=== PATIENT | female | born 1970 | race African-American/Black ===

== ENCOUNTER 2019-05-14 13:41 | Inpatient (IN) ==
[2019-05-14] MEDS ORDERED: MORPHINE 4 MG/1 ML VIAL IV PRN (14:22)
[2019-05-14] MEDS ORDERED: hydrALAZINE 20 MG/1 ML VIAL IV PRN (14:22)
[2019-05-14] MEDS ORDERED: DEXTROSE 10% 250 ML BAG IV PRN (14:24)
[2019-05-14] MEDS ORDERED: GLUCAGON 1 MG VIAL IM PRN (14:24)
[2019-05-14] MEDS ORDERED: NITROGLYCERIN SL 0.4 MG TABLET SL PRN (14:24)
[2019-05-14] MEDS: INSULIN LISPRO 100 UNIT/ML SUBCUT SCH ×2 (18:09→21:00)
[2019-05-14] MEDS: SODIUM CHLORIDE 0.9% 1,000 ML IV SCH (18:10)
[2019-05-15 03:43] LABS: ABG Base Excess 1.4 MMOL/L (-2.5-2.5); ABG HCO3 25.6 MMOL/L (20-26); ABG Oxygen Saturation 95.5 % (95-100); ABG PCO2 40.7 MM HG (35-48); ABG PH 7.414 (7.35-7.45); Allen Test Positive; Pt O2 Delivery Device Room Air
[2019-05-15 04:55] LABS: Basophils # 0.1 10*3/uL (0.0-0.2); Basophils % 0.7 % (0.0-0.8); Eosinophils # 0.1 10*3/uL (0.0-0.87); Eosinophils % 1.5 % (0.00-10.9); Hematocrit 39.1 VOL% (35.7-47.0); Hemoglobin 12.4 GM/DL (12.0-16.0); Immature Granulocytes % 0.2 %; Immature Granulocytes Absolute 0.02 #; Lymphocytes # 2.8 10*3/uL (1.4-4.0); Lymphocytes % 34.2 % (21.3-54.2); Mean Corpuscular HGB Conc 31.7 GM/DL (32-36); Mean Corpuscular Volume 79.5 FL (87-102); Mean Platelet Volume 11.1 FL (9.6-12.0); Monocytes % 6.7 % (1.7-12.7); Neutrophils % 56.7 % (38.7-73.9); Platelet Count 288 T/CUMM (130-400); Red Blood Count 4.92 MC/CUMM (3.8-5.5); Red Cell Distribution Width 15.2 % (9.3-17.3); White Blood Count 8.2 T/CUMM (4-12)
[2019-05-15 05:25] LABS: Albumin 2.9 G/DL (3.4-5.0); Bilirubin,Total 0.9 MG/DL (0.2-1.0); Calcium 8.8 MG/DL (8.5-10.1); Osmolality,Calculated 283.4 MOS/KG (273-304); Total Protein 6.8 G/DL (6.4-8.3)
[2019-05-15] MEDS ORDERED: GLUCAGON 1 MG VIAL IM PRN (07:49)
[2019-05-15] MEDS ORDERED: DEXTROSE 10% 250 ML BAG IV PRN (07:49)
[2019-05-15] MEDS ORDERED: CEFUROXIME INJ 1,500 MG in SYRINGE 1 EACH IV ONE (07:49)
[2019-05-15] MEDS ORDERED: CHLORHEXIDINE 4% SOLN 118 ML BOTTLE TOP SCH (09:00)
[2019-05-15] MEDS: FUROSEMIDE 80 MG TABLET PO SCH (09:18)
[2019-05-15] MEDS: carvediloL 25 MG TABLET PO SCH ×2 (09:18→20:49)
[2019-05-15] MEDS: INSULIN LISPRO 100 UNIT/ML SUBCUT SCH ×4 (09:18→20:47)
[2019-05-15] MEDS: CHLORHEXIDINE 0.12% ORAL RINSE 60 ML BOTTLE SWISH/SPIT SCH ×2 (09:24→20:51)
[2019-05-15] MEDS ORDERED: CLORAZEPATE 3.75 MG TABLET PO PRN (13:51)
[2019-05-15] MEDS: SODIUM CHLORIDE 0.9% 1,000 ML IV SCH (15:49)
[2019-05-15] MEDS: CHLORHEXIDINE 4% SOLN 118 ML BOTTLE TOP SCH ×2 (15:50→20:51)
[2019-05-15] MEDS ORDERED: SIMVASTATIN 40 MG TABLET PO SCH (21:00)
[2019-05-15] MEDS ORDERED: ISOSORBIDE MONONITRATE 30 MG TABLET PO SCH (21:00)
[2019-05-16] MEDS ORDERED: VANCOMYCIN 500 MG VIAL ONE (04:23)
[2019-05-16] MEDS ORDERED: VANCOMYCIN 1,000 MG VIAL ONE (04:23)
[2019-05-16] MEDS ORDERED: PAPAVERINE 60 MG/2 ML VIAL ONE (04:23)
[2019-05-16] MEDS ORDERED: SUFentanil 250 MCG/5 ML AMP ONE (05:59)
[2019-05-16] MEDS ORDERED: MIDAZOLAM 10 MG/2 ML VIAL ONE ×2 (05:59→06:00)
[2019-05-16] MEDS ORDERED: AMINOCAPROIC ACID 5,000 MG/20 ML VIAL ONE (06:00)
[2019-05-16] MEDS ORDERED: DIAZEPAM 5 MG TABLET PO ONE (06:00)
[2019-05-16] MEDS ORDERED: FAMOTIDINE 20 MG TABLET PO ONE (06:00)
[2019-05-16] MEDS ORDERED: CEFUROXIME INJ 1,500 MG in SYRINGE 1 EACH IV ONE (06:00)
[2019-05-16] MEDS ORDERED: VECURONIUM 10 MG VIAL IV ONE (06:00)
[2019-05-16] MEDS: INSULIN LISPRO 100 UNIT/ML SUBCUT SCH ×2 (06:00→12:54)
[2019-05-16] MEDS ORDERED: MINERAL OIL/PETROLATUM OPH OINT 3.5 GM TUBE ONE (06:00)
[2019-05-16] MEDS: carvediloL 25 MG TABLET PO SCH ×2 (06:04→12:54)
[2019-05-16] MEDS: CHLORHEXIDINE 4% SOLN 118 ML BOTTLE TOP SCH ×2 (06:10→11:36)
[2019-05-16 07:50] LABS: ABG Base Excess -1.4 MMOL/L (-2.5-2.5); ABG HCO3 23.3 MMOL/L (20-26); ABG Oxygen Saturation 99.4 % (95-100); ABG PCO2 39.8 MM HG (35-48); ABG TCO2 21.2 MMOL/L (23-27); Glucose Heart Surgery 295 MG/DL (74-106); Hematocrit Heart Surgery 33.7 PERCENT (37-47); Hemoglobin Heart Surgery 10.9 G/DL (12.0-16.0); Ionized Calcium Arterial 1.15 MMOL/L (1.21-1.46); PCO2 Patient Temp Arterial 39.8 MMHG; Patient Temperature 37 CELCIUS; Potassium Heart/CVR 3.7 MMOL/L (3.5-5.1); Sodium Heart/CVR 139 MMOL/L (135-145)
[2019-05-16] MEDS ORDERED: ALBUMIN 5% 12.5 GM/250 ML VIAL IV ONE (08:51)
[2019-05-16 08:52] LABS: Apearance,Urine CLOUDY (Clear); Bacteria,Urine Occasional /HPF (Few); Bilirubin,Urine Negative (Negative); Blood, Urine Negative (Negative); Glucose,Urine (UA) >=500 mg/dL (Negative); Ketones,Urine Negative (Negative); Mucus,Urine Few /LPF (Occasional); Nitrite,Urine Negative (Negative); Protein,Urine 30 MG/DL; RBC,Urine 2 /HPF (0-4); Squamous Epithelial Cell,Urine Few /HPF (0-10); Urine Color Amber (Yellow); Urine Specific Gravity 1.025 (1.001-1.035); Urine Urobilinogen < 2.0 EU/DL (0.2-1.0); WBC,Urine <1 /HPF (0-6)
[2019-05-16] MEDS ORDERED: NITROPRUSSIDE 50 MG/2 ML VIAL ONE ×2 (08:52)
[2019-05-16] MEDS ORDERED: PHENYLEPHRINE DRIP 40 MG/250 ML PREMIX IV ONE (08:52)
[2019-05-16] MEDS ORDERED: CALCIUM CHLORIDE 1,000 MG/10 ML SYRINGE IV ONE (08:53)
[2019-05-16 09:24] LABS: Hematocrit Heart Surgery 21.9 PERCENT (37-47); PCO2 Patient Temp Venous 38.6 MM HG; PH Patient Temp Venous 7.404; PO2 Patient Temp Venous 41.3 MM HG; Potassium Heart/CVR 4.5 MMOL/L (3.5-5.1); VBG Base Excess -0.3 MEQ/L (0-4); VBG Oxygen Saturation 82.4 %; VBG PCO2 42.5 MMHG (41-51); VBG PH 7.376; VBG PO2 47.3 MMHG (17-40)
[2019-05-16 09:56] LABS: Hematocrit Heart Surgery 26.2 PERCENT (37-47); Hemoglobin Heart Surgery 8.4 G/DL (12.0-16.0); PCO2 Patient Temp Venous 36.8 MM HG; PH Patient Temp Venous 7.396; PO2 Patient Temp Venous 41.3 MM HG; Potassium Heart/CVR 5.4 MMOL/L (3.5-5.1); VBG Base Excess -1.9 MEQ/L (0-4); VBG HCO3 22.5 MEQ/L (24-28); VBG Oxygen Saturation 77.1 %; VBG PCO2 36.8 MMHG (41-51); VBG PH 7.396; VBG PO2 41.3 MMHG (17-40)
[2019-05-16] MEDS ORDERED: PROTAMINE SULFATE 250 MG/25 ML VIAL IV ONE (10:26)
[2019-05-16] MEDS ORDERED: MANNITOL 100 GM/500 ML BAG IV ONE (10:26)
[2019-05-16] MEDS ORDERED: methylPREDNISolone SOD SUC 1,000 MG/8 ML VIAL ONE (10:26)
[2019-05-16] MEDS ORDERED: ALBUMIN 25% 25 GM/100 ML VIAL IV ONE ×2 (10:26→10:34)
[2019-05-16] MEDS ORDERED: LIDOCAINE 2% 5 ML VIAL ONE (10:26)
[2019-05-16] MEDS ORDERED: MAGNESIUM SULFATE 5 GM/10 ML VIAL IV ONE (10:26)
[2019-05-16] MEDS ORDERED: DEXTROSE 5% KCL 20 MEQ 20 MEQ/1,000 ML BAG IV ONE (10:26)
[2019-05-16] MEDS ORDERED: HEPARIN 10,000 UNIT/10 ML VIAL ONE (10:26)
[2019-05-16] MEDS ORDERED: SODIUM BICARBONATE 50 MEQ/50 ML VIAL IV ONE (10:26)
[2019-05-16] MEDS ORDERED: FUROSEMIDE 20 MG/2 ML VIAL ONE (10:27)
[2019-05-16] MEDS ORDERED: PROTAMINE SULFATE 50 MG/5 ML VIAL IV ONE ×3 (10:27→11:24)
[2019-05-16 10:33] LABS: ABG Base Excess -4.9 MMOL/L (-2.5-2.5); ABG HCO3 19.8 MMOL/L (20-26); ABG Oxygen Saturation 98.7 % (95-100); ABG PCO2 34.8 MM HG (35-48); ABG PH 7.372 (7.35-7.45); ABG PO2 259.3 MM HG (80-95); ABG TCO2 20.8 MMOL/L (23-27); Glucose Heart Surgery 313 MG/DL (74-106); Hemoglobin Heart Surgery 8.7 G/DL (12.0-16.0); Ionized Calcium Arterial 1.36 MMOL/L (1.21-1.46); PCO2 Patient Temp Arterial 34.8 MMHG; PH Patient Temp Arterial 7.372; PO2 Patient Temp Arterial 259.3 MM HG; Patient Temperature 37 CELCIUS; Potassium Heart/CVR 3.8 MMOL/L (3.5-5.1); Sodium Heart/CVR 132 MMOL/L (135-145)
[2019-05-16] MEDS ORDERED: ONDANSETRON 4 MG/2 ML VIAL IV PRN (11:23)
[2019-05-16] MEDS ORDERED: LACTATED RINGERS 250 ML IV PRN (11:23)
[2019-05-16] MEDS ORDERED: INSULIN REGULAR 100 UNIT/ML IV PRN (11:23)
[2019-05-16] MEDS ORDERED: MORPHINE 10 MG/1 ML VIAL IV PRN (11:23)
[2019-05-16] MEDS ORDERED: ALBUMIN 5% 12.5 GM in PREMIX 1 EACH IV PRN (11:23)
[2019-05-16] MEDS ORDERED: VECURONIUM 10 MG VIAL IV PRN ×2 (11:23)
[2019-05-16] MEDS ORDERED: MAGNESIUM SULF RIDER 4 GM in PREMIX 1 EACH IV PRN (11:23)
[2019-05-16] MEDS ORDERED: CHLORHEXIDINE 4% SOLN 118 ML BOTTLE TOP PRN (11:23)
[2019-05-16] MEDS ORDERED: INSULIN REGULAR 100 UNIT/ML IV ONE (11:23)
[2019-05-16] MEDS ORDERED: MAGNESIUM SULF RIDER 2 GM in PREMIX 1 EACH IV PRN (11:23)
[2019-05-16] MEDS ORDERED: CALCIUM CHLORIDE 1,000 MG/10 ML SYRINGE IV PRN (11:23)
[2019-05-16] MEDS ORDERED: PHENYLEPHRINE DRIP 40 MG/250 ML PREMIX IV PRN (11:23)
[2019-05-16] MEDS ORDERED: ACETAMINOPHEN 650 MG SUPP RECTAL PRN (11:23)
[2019-05-16] MEDS ORDERED: MORPHINE 4 MG/1 ML VIAL IV PRN (11:23)
[2019-05-16] MEDS ORDERED: MIDAZOLAM 2 MG/2 ML VIAL IV PRN (11:23)
[2019-05-16] MEDS ORDERED: POTASSIUM CHLORIDE RIDER 10 MEQ in PREMIX 1 EACH IV PRN (11:23)
[2019-05-16] MEDS ORDERED: MIDAZOLAM 10 MG/2 ML VIAL IV PRN (11:23)
[2019-05-16] MEDS ORDERED: DEXTROSE 10% 250 ML BAG IV PRN ×2 (11:23)
[2019-05-16 11:27] LABS: ABG HCO3 21.1 MMOL/L (20-26); ABG Oxygen Saturation 98.7 % (95-100); ABG PCO2 38.2 MM HG (35-48); ABG PO2 234.6 MM HG (80-95); ABG TCO2 22.3 MMOL/L (23-27); Glucose Heart Surgery 262 MG/DL (74-106); Hemoglobin Heart Surgery 9.4 G/DL (12.0-16.0); Potassium Heart/CVR 4.2 MMOL/L (3.5-5.1)
[2019-05-16 11:28] LABS: Basophils # 0.1 10*3/uL (0.0-0.2); Basophils % 0.4 % (0.0-0.8); Eosinophils # 0.1 10*3/uL (0.0-0.87); Eosinophils % 0.6 % (0.00-10.9); Hematocrit 29.7 VOL% (35.7-47.0); Immature Granulocytes % 0.7 %; Lymphocytes # 2.3 10*3/uL (1.4-4.0); Lymphocytes % 16.5 % (21.3-54.2); Mean Corpuscular HGB Conc 30.3 GM/DL (32-36); Mean Corpuscular Volume 81.4 FL (87-102); Mean Platelet Volume 11.3 FL (9.6-12.0); Monocytes % 5.4 % (1.7-12.7); Neutrophils % 76.4 % (38.7-73.9); Platelet Count 248 T/CUMM (130-400)
[2019-05-16] MEDS ORDERED: SODIUM CHLORIDE 0.45% 1,000 ML IV SCH ×2 (11:30)
[2019-05-16 11:31] LABS: Red Blood Count 3.65 MC/CUMM (3.8-5.5); White Blood Count 13.7 T/CUMM (4-12)
[2019-05-16 11:37] LABS: INR 1.2; PT Patient Result 12.8 SECS (9.6-12.2); Partial Thromboplastin Time 25.5 SECS (20.8-36.0)
[2019-05-16] MEDS ORDERED: LACTATED RINGERS 1,000 ML IV PRN (11:48)
[2019-05-16 11:58] LABS: CKMB % 4.5 %
[2019-05-16 12:01] LABS: Troponin I 1.74 NG/ML (0.00-0.045)
[2019-05-16 12:18] LABS: Albumin 3.4 G/DL (3.4-5.0); Bilirubin,Total 1.2 MG/DL (0.2-1.0); Calcium 9.6 MG/DL (8.5-10.1); Osmolality,Calculated 279.1 MOS/KG (273-304); Total Protein 5.9 G/DL (6.4-8.3)
[2019-05-16 12:28] LABS: ABG Base Excess -3.2 MMOL/L (-2.5-2.5); ABG HCO3 21.8 MMOL/L (20-26); ABG Oxygen Saturation 98.2 % (95-100); ABG PCO2 40.9 MM HG (35-48); ABG PH 7.345 (7.35-7.45); ABG TCO2 20.4 MMOL/L (23-27); Glucose Heart Surgery 280 MG/DL (74-106); Hematocrit Heart Surgery 31.1 PERCENT (37-47)
[2019-05-16] MEDS: CHLORHEXIDINE 0.12% ORAL RINSE 60 ML BOTTLE SWISH/SPIT SCH ×2 (12:53→20:34)
[2019-05-16] MEDS: FUROSEMIDE 80 MG TABLET PO SCH (12:54)
[2019-05-16] MEDS ORDERED: SODIUM CHLORIDE 0.9% 100 ML IV ONE (12:56)
[2019-05-16] MEDS ORDERED: SEVOFLURANE 1 UNIT/15 MINUTE INH ONE (12:56)
[2019-05-16] MEDS ORDERED: PHENYLEPHRINE DRIP 20 MG/250 ML PREMIX IV ONE (12:56)
[2019-05-16] MEDS ORDERED: SODIUM CHLORIDE 0.9% 250 ML IV ONE (12:56)
[2019-05-16] MEDS ORDERED: CALCIUM CHLORIDE 1,000 MG/10 ML VIAL IV ONE (12:56)
[2019-05-16] MEDS ORDERED: LACTATED RINGERS 1,000 ML IV ONE (12:56)
[2019-05-16] MEDS ORDERED: SODIUM CHLORIDE 0.9% 1,000 ML IV ONE (12:56)
[2019-05-16] MEDS ORDERED: HEPARIN/NACL 0.9% 2 UNITS/ML 500 ML IV ONE (12:56)
[2019-05-16 13:19] LABS: ABG Base Excess -3.4 MMOL/L (-2.5-2.5); ABG HCO3 21.6 MMOL/L (20-26); ABG Oxygen Saturation 97.4 % (95-100); ABG PCO2 39.6 MM HG (35-48); ABG PH 7.351 (7.35-7.45); ABG PO2 99.2 MM HG (80-95); ABG TCO2 19.7 MMOL/L (23-27); Glucose Heart Surgery 310 MG/DL (74-106); Hematocrit Heart Surgery 34.1 PERCENT (37-47); Hemoglobin Heart Surgery 11.1 G/DL (12.0-16.0); Potassium Heart/CVR 4.3 MMOL/L (3.5-5.1)
[2019-05-16] MEDS: INSULIN REGULAR DRIP 100 ML IV SCH ×2 (13:26→22:28)
[2019-05-16] MEDS: NITROPRUSSIDE 100 MG in DEXTROSE 5% 250 ML IV PRN (13:56)
[2019-05-16 14:11] LABS: ABG Base Excess -4.5 MMOL/L (-2.5-2.5); ABG HCO3 20.9 MMOL/L (20-26); ABG Oxygen Saturation 94.1 % (95-100); ABG PCO2 39.6 MM HG (35-48); ABG PO2 77.3 MM HG (80-95); ABG TCO2 22.1 MMOL/L (23-27); Glucose Heart Surgery 286 MG/DL (74-106); Hemoglobin Heart Surgery 11.5 G/DL (12.0-16.0); Potassium Heart/CVR 3.9 MMOL/L (3.5-5.1)
[2019-05-16 15:46] LABS: ABG Base Excess -3.3 MMOL/L (-2.5-2.5); ABG HCO3 21.7 MMOL/L (20-26); ABG Oxygen Saturation 95.6 % (95-100); ABG PCO2 43.5 MM HG (35-48); ABG PH 7.327 (7.35-7.45); ABG TCO2 20.4 MMOL/L (23-27); Glucose Heart Surgery 273 MG/DL (74-106); Hemoglobin Heart Surgery 11.7 G/DL (12.0-16.0); Potassium Heart/CVR 3.9 MMOL/L (3.5-5.1)
[2019-05-16 17:21] LABS: ABG Base Excess -2.9 MMOL/L (-2.5-2.5); ABG HCO3 21.9 MMOL/L (20-26); ABG Oxygen Saturation 94.5 % (95-100); ABG PCO2 43.1 MM HG (35-48); ABG PH 7.335 (7.35-7.45); ABG PO2 77.3 MM HG (80-95); ABG TCO2 20.6 MMOL/L (23-27); Glucose Heart Surgery 260 MG/DL (74-106); Hematocrit Heart Surgery 35.8 PERCENT (37-47); Hemoglobin Heart Surgery 11.6 G/DL (12.0-16.0); Potassium Heart/CVR 4.1 MMOL/L (3.5-5.1)
[2019-05-16] MEDS: CEFUROXIME INJ 1,500 MG in SYRINGE 1 EACH IV SCH (18:20)
[2019-05-16 19:26] LABS: ABG Base Excess -2.3 MMOL/L (-2.5-2.5); ABG HCO3 22.4 MMOL/L (20-26); ABG Oxygen Saturation 93.3 % (95-100); ABG PCO2 41.7 MM HG (35-48); ABG PH 7.353 (7.35-7.45); ABG PO2 70.3 MM HG (80-95); ABG TCO2 20.8 MMOL/L (23-27); Glucose Heart Surgery 256 MG/DL (74-106); Hematocrit Heart Surgery 35.9 PERCENT (37-47); Hemoglobin Heart Surgery 11.6 G/DL (12.0-16.0); Potassium Heart/CVR 4.1 MMOL/L (3.5-5.1)
[2019-05-16 20:40] LABS: CKMB % 3.4 %
[2019-05-16 20:44] LABS: Troponin I 3.89 NG/ML (0.00-0.045)
[2019-05-16 21:17] LABS: ABG Base Excess -2.2 MMOL/L (-2.5-2.5); ABG HCO3 22.5 MMOL/L (20-26); ABG Oxygen Saturation 93.1 % (95-100); ABG PCO2 38.6 MM HG (35-48); ABG PH 7.376 (7.35-7.45); ABG PO2 68.6 MM HG (80-95); ABG TCO2 20.3 MMOL/L (23-27); Glucose Heart Surgery 232 MG/DL (74-106); Hematocrit Heart Surgery 35.1 PERCENT (37-47); Hemoglobin Heart Surgery 11.4 G/DL (12.0-16.0); Potassium Heart/CVR 3.7 MMOL/L (3.5-5.1)
[2019-05-16] MEDS ORDERED: FUROSEMIDE 40 MG/4 ML VIAL IV ONE (21:27)
[2019-05-16] MEDS ORDERED: NITROGLYCERIN DRIP 50 MG/250 ML BOTTLE IV PRN (21:27)
[2019-05-16] MEDS: KETOROLAC 30 MG/1 ML VIAL IV SCH (21:41)
[2019-05-16] MEDS: POTASSIUM CHLORIDE RIDER 20 MEQ in PREMIX 1 EACH IV PRN (21:48)
[2019-05-16] MEDS: ALBUTEROL/IPRATROPIUM 3 ML NEB RESP TX SCH (23:58)
[2019-05-17 00:45] LABS: ABG Base Excess -0.5 MMOL/L (-2.5-2.5); ABG HCO3 23.9 MMOL/L (20-26); ABG Oxygen Saturation 94.3 % (95-100); ABG PCO2 39.4 MM HG (35-48); ABG PH 7.397 (7.35-7.45); ABG PO2 71.6 MM HG (80-95); ABG TCO2 21.6 MMOL/L (23-27); Glucose Heart Surgery 166 MG/DL (74-106); Hematocrit Heart Surgery 35.6 PERCENT (37-47); Hemoglobin Heart Surgery 11.6 G/DL (12.0-16.0); Potassium Heart/CVR 3.8 MMOL/L (3.5-5.1)
[2019-05-17 01:45] LABS: ABG Base Excess -0.5 MMOL/L (-2.5-2.5); ABG HCO3 23.9 MMOL/L (20-26); ABG PCO2 38.4 MM HG (35-48); ABG PH 7.404 (7.35-7.45); ABG PO2 69.2 MM HG (80-95); ABG TCO2 21.4 MMOL/L (23-27); Glucose Heart Surgery 146 MG/DL (74-106); Hematocrit Heart Surgery 35.1 PERCENT (37-47); Hemoglobin Heart Surgery 11.4 G/DL (12.0-16.0); Potassium Heart/CVR 3.7 MMOL/L (3.5-5.1)
[2019-05-17] MEDS: POTASSIUM CHLORIDE RIDER 20 MEQ in PREMIX 1 EACH IV PRN (01:49)
[2019-05-17] MEDS: NITROPRUSSIDE 100 MG in DEXTROSE 5% 250 ML IV PRN (02:34)
[2019-05-17 03:31] LABS: Basophils % 0.1 % (0.0-0.8); Hematocrit 36.1 VOL% (35.7-47.0); Hemoglobin 11.2 GM/DL (12.0-16.0); Immature Granulocytes % 0.7 %; Immature Granulocytes Absolute 0.15 #; Lymphocytes # 1.7 10*3/uL (1.4-4.0); Mean Corpuscular Volume 80.6 FL (87-102); Mean Platelet Volume 11.3 FL (9.6-12.0); Monocytes % 5.6 % (1.7-12.7); Neutrophils % 85.6 % (38.7-73.9); Platelet Count 297 T/CUMM (130-400); Red Blood Count 4.48 MC/CUMM (3.8-5.5); Red Cell Distribution Width 15.5 % (9.3-17.3); White Blood Count 21.5 T/CUMM (4-12)
[2019-05-17 03:35] LABS: ABG Base Excess 0.1 MMOL/L (-2.5-2.5); ABG HCO3 24.5 MMOL/L (20-26); ABG Oxygen Saturation 93.5 % (95-100); ABG PCO2 37.9 MM HG (35-48); ABG PH 7.417 (7.35-7.45); ABG PO2 66.2 MM HG (80-95); ABG TCO2 21.8 MMOL/L (23-27); Glucose Heart Surgery 134 MG/DL (74-106); Hematocrit Heart Surgery 35.3 PERCENT (37-47); Hemoglobin Heart Surgery 11.5 G/DL (12.0-16.0)
[2019-05-17] MEDS: ALBUTEROL/IPRATROPIUM 3 ML NEB RESP TX SCH ×3 (03:36→11:15)
[2019-05-17 03:44] LABS: Albumin 3.6 G/DL (3.4-5.0); Bilirubin,Direct 0.21 MG/DL (0.0-0.20); Calcium 9.2 MG/DL (8.5-10.1); Osmolality,Calculated 284.1 MOS/KG (273-304); Total Protein 6.7 G/DL (6.4-8.3)
[2019-05-17 03:46] LABS: CKMB % 2.5 %
[2019-05-17 03:55] LABS: Troponin I 3.86 NG/ML (0.00-0.045)
[2019-05-17] MEDS: KETOROLAC 30 MG/1 ML VIAL IV SCH ×4 (04:13→22:03)
[2019-05-17 04:36] LABS: Hypochromasia Slight; Platelet Estimate Adequate
[2019-05-17 05:20] LABS: ABG Base Excess 0.3 MMOL/L (-2.5-2.5); ABG HCO3 24.6 MMOL/L (20-26); ABG Oxygen Saturation 93.9 % (95-100); ABG PCO2 37.7 MM HG (35-48); ABG PH 7.421 (7.35-7.45); ABG PO2 69.9 MM HG (80-95); ABG TCO2 21.9 MMOL/L (23-27); Glucose Heart Surgery 127 MG/DL (74-106); Hematocrit Heart Surgery 35.1 PERCENT (37-47); Hemoglobin Heart Surgery 11.4 G/DL (12.0-16.0); Potassium Heart/CVR 3.9 MMOL/L (3.5-5.1)
[2019-05-17 07:03] LABS: ABG Base Excess 0.5 MMOL/L (-2.5-2.5); ABG HCO3 24.8 MMOL/L (20-26); ABG Oxygen Saturation 95.1 % (95-100); ABG PCO2 36.9 MM HG (35-48); ABG PH 7.431 (7.35-7.45); ABG PO2 72.9 MM HG (80-95); ABG TCO2 21.9 MMOL/L (23-27); Glucose Heart Surgery 138 MG/DL (74-106); Hematocrit Heart Surgery 34.8 PERCENT (37-47); Hemoglobin Heart Surgery 11.3 G/DL (12.0-16.0); Potassium Heart/CVR 3.8 MMOL/L (3.5-5.1)
[2019-05-17] MEDS: CEFUROXIME INJ 1,500 MG in SYRINGE 1 EACH IV SCH ×2 (07:12→18:54)
[2019-05-17] MEDS ORDERED: SODIUM CHLOR 0.45% KCL 20 MEQ 20 MEQ/1,000 ML BAG IV SCH ×2 (08:00→11:14)
[2019-05-17] MEDS ORDERED: INSULIN REGULAR 100 UNIT/ML SUBCUT SCH ×2 (08:00→11:30)
[2019-05-17] MEDS: ASPIRIN EC 81 MG TABLET PO SCH (08:06)
[2019-05-17] MEDS: CHLORHEXIDINE 0.12% ORAL RINSE 60 ML BOTTLE SWISH/SPIT SCH ×2 (08:06→21:13)
[2019-05-17] MEDS: carvediloL 25 MG TABLET PO SCH ×2 (08:07→21:10)
[2019-05-17] MEDS ORDERED: FUROSEMIDE 40 MG/4 ML VIAL IV ONE (08:26)
[2019-05-17] MEDS ORDERED: DEXTROSE 10% 250 ML BAG IV PRN (11:14)
[2019-05-17] MEDS ORDERED: ALUMINUM/MAGNES/SIMETH MAX STR 30 ML UDCUP PO PRN (11:14)
[2019-05-17] MEDS ORDERED: POTASSIUM CHLORIDE 20 MEQ TABLET PO PRN (11:14)
[2019-05-17] MEDS ORDERED: MAGNESIUM SULF RIDER 4 GM in PREMIX 1 EACH IV PRN (11:14)
[2019-05-17] MEDS ORDERED: ACETAMINOPHEN 325 MG TABLET PO PRN (11:14)
[2019-05-17] MEDS ORDERED: ZALEPLON 5 MG CAPSULE PO PRN (11:14)
[2019-05-17] MEDS ORDERED: oxyCODONE/ACETAMINOPHEN 5-325 MG TABLET PO PRN (11:14)
[2019-05-17] MEDS ORDERED: MAGNESIUM SULF RIDER 2 GM in PREMIX 1 EACH IV PRN (11:14)
[2019-05-17] MEDS ORDERED: ONDANSETRON 4 MG/2 ML VIAL IV PRN (11:14)
[2019-05-17] MEDS ORDERED: GLUCAGON 1 MG VIAL IM PRN (11:14)
[2019-05-17] MEDS ORDERED: MAGNESIUM HYDROXIDE SUSP 30 ML UDCUP PO PRN (11:14)
[2019-05-17] MEDS ORDERED: ALBUTEROL 2.5 MG/3 ML NEB RESP TX PRN (11:30)
[2019-05-17 12:03] LABS: CKMB % 1.7 %
[2019-05-17 12:07] LABS: Troponin I 3.15 NG/ML (0.00-0.045)
[2019-05-17] MEDS ORDERED: CLORAZEPATE 3.75 MG TABLET PO PRN (13:36)
[2019-05-17] MEDS: INSULIN REGULAR 100 UNIT/ML SUBCUT SCH ×2 (16:31→21:10)
[2019-05-17] MEDS: SIMVASTATIN 40 MG TABLET PO SCH (21:10)
[2019-05-18] MEDS: KETOROLAC 30 MG/1 ML VIAL IV SCH ×4 (05:22→21:14)
[2019-05-18] MEDS ORDERED: FUROSEMIDE 40 MG/4 ML VIAL IV ONE (06:00)
[2019-05-18 06:17] LABS: Basophils % 0.2 % (0.0-0.8); Hematocrit 35.7 VOL% (35.7-47.0); Hemoglobin 10.9 GM/DL (12.0-16.0); Immature Granulocytes % 0.9 %; Immature Granulocytes Absolute 0.17 #; Lymphocytes # 2.7 10*3/uL (1.4-4.0); Lymphocytes % 13.7 % (21.3-54.2); Mean Corpuscular HGB Conc 30.5 GM/DL (32-36); Mean Corpuscular Volume 82.3 FL (87-102); Mean Platelet Volume 12.2 FL (9.6-12.0); Monocytes % 8.1 % (1.7-12.7); Neutrophils % 77.1 % (38.7-73.9); Platelet Count 301 T/CUMM (130-400); Red Blood Count 4.34 MC/CUMM (3.8-5.5); Red Cell Distribution Width 15.7 % (9.3-17.3)
[2019-05-18 06:29] LABS: Alanine Aminotransferase 72 U/L (13-56); Albumin 3.3 G/DL (3.4-5.0); Alkaline Phosphatase 84 U/L (45-117); Aspartate Amino Transferase 52 U/L (0-37); Bilirubin,Indirect 0.6 MG/DL (0.0-1.0); Total Protein 7.1 G/DL (6.4-8.3)
[2019-05-18 06:44] LABS: Albumin 3.3 G/DL (3.4-5.0); Bilirubin,Direct 0.19 MG/DL (0.0-0.20); Calcium 9.1 MG/DL (8.5-10.1); Total Protein 6.9 G/DL (6.4-8.3)
[2019-05-18] MEDS ORDERED: DEXTROSE 10% 250 ML BAG IV PRN (09:38)
[2019-05-18] MEDS ORDERED: GLUCAGON 1 MG VIAL IM PRN (09:38)
[2019-05-18] MEDS: PANTOPRAZOLE 40 MG TABLET PO SCH (09:51)
[2019-05-18] MEDS: FERROUS SULFATE 325 MG TABLET PO SCH (09:51)
[2019-05-18] MEDS: DOCUSATE SODIUM 100 MG CAPSULE PO SCH (09:51)
[2019-05-18] MEDS: carvediloL 25 MG TABLET PO SCH ×2 (09:51→21:14)
[2019-05-18] MEDS: ASPIRIN EC 81 MG TABLET PO SCH (09:51)
[2019-05-18] MEDS: INSULIN REGULAR 100 UNIT/ML SUBCUT SCH (09:53)
[2019-05-18] MEDS: CHLORHEXIDINE 0.12% ORAL RINSE 60 ML BOTTLE SWISH/SPIT SCH ×2 (09:57→21:17)
[2019-05-18] MEDS: INSULIN LISPRO 100 UNIT/ML SUBCUT SCH ×3 (13:11→21:15)
[2019-05-18] MEDS: glipiZIDE 10 MG TABLET PO SCH (16:40)
[2019-05-18] MEDS ORDERED: INSULIN GLARGINE 100 UNIT/ML SUBCUT SCH (21:00)
[2019-05-18] MEDS: SIMVASTATIN 40 MG TABLET PO SCH (21:17)
[2019-05-19] MEDS: KETOROLAC 30 MG/1 ML VIAL IV SCH ×2 (04:00→09:52)
[2019-05-19 04:35] LABS: Basophils % 0.3 % (0.0-0.8); Eosinophils # 0.1 10*3/uL (0.0-0.87); Eosinophils % 0.4 % (0.00-10.9); Hematocrit 33.2 VOL% (35.7-47.0); Hemoglobin 10.5 GM/DL (12.0-16.0); Immature Granulocytes % 0.6 %; Immature Granulocytes Absolute 0.09 #; Lymphocytes # 2.9 10*3/uL (1.4-4.0); Lymphocytes % 19.1 % (21.3-54.2); Mean Corpuscular HGB Conc 31.6 GM/DL (32-36); Mean Corpuscular Volume 81.2 FL (87-102); Mean Platelet Volume 11.4 FL (9.6-12.0); Monocytes % 8.6 % (1.7-12.7); Platelet Count 295 T/CUMM (130-400); Red Blood Count 4.09 MC/CUMM (3.8-5.5); Red Cell Distribution Width 15.6 % (9.3-17.3); White Blood Count 15.3 T/CUMM (4-12)
[2019-05-19 05:12] LABS: Alanine Aminotransferase 54 U/L (13-56); Albumin 2.9 G/DL (3.4-5.0); Alkaline Phosphatase 76 U/L (45-117); Aspartate Amino Transferase 23 U/L (0-37); Bilirubin,Direct 0.24 MG/DL (0.0-0.20); Bilirubin,Indirect 0.7 MG/DL (0.0-1.0); Calcium 8.8 MG/DL (8.5-10.1); Osmolality,Calculated 281.7 MOS/KG (273-304); Total Protein 6.8 G/DL (6.4-8.3)
[2019-05-19 05:17] LABS: Troponin I 0.969 NG/ML (0.00-0.045)
[2019-05-19 08:54] VITALS: BP 132/78
[2019-05-19] MEDS ORDERED: sitaGLIPtin 100 MG TABLET PO SCH (09:00)
[2019-05-19] MEDS ORDERED: FUROSEMIDE 80 MG TABLET PO SCH (09:00)
[2019-05-19] MEDS: INSULIN LISPRO 100 UNIT/ML SUBCUT SCH ×2 (09:53→11:34)
[2019-05-19] MEDS: FERROUS SULFATE 325 MG TABLET PO SCH (09:54)
[2019-05-19] MEDS: ASPIRIN EC 81 MG TABLET PO SCH (09:54)
[2019-05-19] MEDS: PANTOPRAZOLE 40 MG TABLET PO SCH (09:54)
[2019-05-19] MEDS: glipiZIDE 10 MG TABLET PO SCH (09:54)
[2019-05-19] MEDS: DOCUSATE SODIUM 100 MG CAPSULE PO SCH (09:54)
[2019-05-19] MEDS: carvediloL 25 MG TABLET PO SCH (09:55)
[2019-05-19] MEDS: CHLORHEXIDINE 0.12% ORAL RINSE 60 ML BOTTLE SWISH/SPIT SCH (09:55)
== END 2019-05-19 12:39 | disposition home health service (06) | DRG 236 ==
LOC: N.TELES 17:08 → N.CVR 05-16 10:56 → N.TELES 05-17 11:06